=== PATIENT | female | born 1980 | race Caucasian/White ===

== ENCOUNTER 2016-10-30 03:21 | Emergency (ER) | payer OTHER ==
[~2016-10-30] VITALS: Ht 165.1 cm; Wt 54.4 kg
--- NOTE | 2016-10-30 03:35 | NUR ---
DR HARTMAN INTO EVAL PT
[2016-10-30] MEDS ORDERED: PROMETHAZINE/CODEINE 5 ML UDC PO ONE (03:45)
[2016-10-30] MEDS ORDERED: ONDANSETRON ODT 4 MG TAB.RAPDIS SL ONE (04:00)
[2016-10-30] MEDS ORDERED: BENZONATATE 100 MG CAPSULE PO ONE (04:00)
[2016-10-30] MEDS ORDERED: BENZONATATE 100 MG CAPSULE ONE (04:02)
[2016-10-30] MEDS ORDERED: ONDANSETRON ODT 4 MG TAB.RAPDIS ONE (04:07)
[2016-10-30] MEDS ORDERED: LORAZEPAM 0.5 MG TABLET PO ONE (05:00)
--- NOTE | 2016-10-30 05:00 | NUR ---
Patient discharged to home in stable conditon. Written and verbal after care instructions given. Patient verbalizes understanding of instructions. PT walked out of ER unassisted with belongings at side...
[2016-10-30 05:01] VITALS: BP 126/97
[2016-10-30] MEDS ORDERED: LORAZEPAM 1 MG TABLET ONE (05:08)
== END 2016-10-30 05:02 | disposition home or self-care (01) ==
LOC: ER 03:34
DX: J11.1 Influenza due to unidentified influenza virus with other respiratory manifestations (principal); Z88.6 Allergy status to analgesic agent
CPT/HCPCS: 36415; 86403; 87070; 87400; A4663; Q0162